=== PATIENT | female | born 1960 | race Caucasian/White ===

== ENCOUNTER 2017-11-06 05:57 | Outpatient (CLI) | payer BC ==
[~2017-11-06] VITALS: Ht 162.6 cm; Wt 76.2 kg
[~2017-11-06 05:57] MED LIST: EST; ESTRADIOL IM; LVT.025T PO; SERT50TA PO
[2017-11-06] MEDS ORDERED: LEVO75TA6 PO (11:31)
== END 2017-11-06 11:39 ==
LOC: PREOP 05:57
PROVIDERS: ATTEND Surgery
DX: Z01.818 Encounter for other preprocedural examination (principal); R19.4 Change in bowel habit

== ENCOUNTER 2017-11-11 11:47 | Day surgery (SDC) | payer BC, OTHER ==
[~2017-11-11] VITALS: Ht 162.6 cm; Wt 76.2 kg
[~2017-11-11 11:47] MED LIST changes: +LEVO75TA6 PO
--- OUTSIDE RECORDS SUMMARY | 2017-11-11 11:55 | XMS REPORT ---
Author Author Clifton Patel [facility] Address [address] [place], [place] [id number] Care Team Providers Care Fire Prevention Inspector Name Role Phone Clifton Patel PCP Unavailable Allergies and Adverse Reactions Name Reaction Notes codeine sulfate Morphine Sulfate Paxil Reglan muscle pain/twitching tramadol Zoloft leg pain/tiredness Plan of Treatment Not available. Medications Active Name Start Date Estimated Completion Date SIG Comments levothyroxine 75 mcg oral tablet take 1 tablet (75 mcg) by oral route once daily Name Start Date Expiration Date SIG Comments Symbicort 160-4.5 mcg/actuation inhalation HFA aerosol inhaler inhale 2 puffs by inhalation route 2 times per day in the morning and evening Bactroban 2 % topical cream apply a small amount to the affected area by topical route amoxicillin 875 mg oral tablet take 1 tablet (875 mg) by oral route every 12 hours Problem List Description Status Onset SCC (squamous cell carcinoma) Active 10/21/2016 Vital Signs Date Time BP-Sys(mm[Hg] BP-Taniya(mm[Hg]) HR(bpm) RR(rpm) Temp WT HT HC BMI BSA BMI Percentile O2 Sat(%) 10/19/2016 10:02:00 AM 135 mmHg 78 mmHg 74 bpm 20 rpm 97.2 F 168 lbs 65 in 27.96 kg/m2 1.87 m2 Social History Name Description Comments Tobacco Current every day smoker Alcohol Use - Occasional History of Procedures Not available. Results Summary Not available. History Of Immunizations Not available. 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
--- OUTSIDE RECORDS SUMMARY | 2017-11-11 11:55 | XMS REPORT | Continuity of Care Document ---
Author Author [facility] Address Unknown Phone Unavailable Allergies There is no data. Medications There is no data. Problems There is no data. Procedures There is no data. Results There is no data. Encounters ACCT No. Visit Date/Time Discharge Status Pt. Type Provider Facility Loc./Unit Complaint [id number] 08/14/2017 17:08:56 08/14/2017 23:59:59 [facility] Outpatient Jarvis Aviles [id number] 11/07/2016 09:16:44 11/07/2016 23:59:59 [facility] Outpatient Clifton Patel [id number] 10/19/2016 09:59:12 10/19/2016 23:59:59 [facility] Outpatient Clifton Patel
--- OUTSIDE RECORDS SUMMARY | 2017-11-11 11:55 | XMS REPORT ---
Author Author Clifton Patel [facility] Address [address] [place], [place] [id number] Care Team Providers Care Manager Company Name Role Phone Clifton Patel PCP Unavailable [...] HC BMI BSA BMI Percentile O2 Sat(%) 11/07/2016 8:45:00 AM 120 mmHg 77 mmHg 75 bpm 20 rpm 97.6 F 168 lbs 65 in 27.96 kg/m2 1.87 m2 10/19/2016 10:02:00 AM 135 mmHg 78 mmHg 74 bpm 20 rpm 97.2 F 168 lbs 65 in 27.9564 kg/m 1.8694 m Social History Name Description Comments Tobacco Current every day smoker Alcohol Use - Occasional History of Procedures Not available. Results Summary Not available. History Of Immunizations Not available. 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
--- OUTSIDE RECORDS SUMMARY | 2017-11-11 11:55 | XMS REPORT | CCD ---
Author Author JOHNATHAN HERNANDEZ Unknown Address [address] [facility] [address] [place] [id number] Care Team Providers Care Supervisor Blasting Name Role Phone REYNA ER, JORGE DO Attphys [place] ER, JORGE DO Prisurg Allergies Allergy Code Allergy Type Reaction Status No Known Drug Allergies 0 Drug allergy Active Active Medications Unknown or Not Available. Problems Unknown or Not Available. Procedures Procedure Code Procedure Type Date ABDOMEN 2 VIEW DECUB/UPRIGHT 716253635 SNOMED CT 2016 UA ROUTINE C&S IF IND 340615618 SNOMED CT 11/06/2016 C REACTIVE PROTEIN 54532018 SNOMED CT 11/06/2016 LACTIC ACID 4921817 SNOMED [address] 11/06/2016 CULTURE BLOOD 80035293 SNOMED CT 11/06/2016 COMPREHENSIVE METABOLIC PANEL 944741356 SNOMED CT 2016 CBC W/ AUTO DIFF (RFLX MAN DIFF IF IND) 2080935 SNOMED CT 11/06/2016 ^UA WITH MICRO 519863380 SNOMED CT 11/06/2016 ^CBC W/AUTO DIFF 9383436 SNOMED CT 11/06/2016 Results COMPREHENSIVE METABOLIC PANEL - Collect Date/Time: 11/06/2016 14:45 Test Name Code Test Result Test Units Test Ref Range GLUCOSE 2345-7 93 MG/DL L=70 H=100 SODIUM 2951-2 141 MEQ/L L=135 H=148 POTASSIUM 2823-3 3.8 MEQ/L L=3.5 H=5.3 CHLORIDE 2075-0 105 MEQ/L L=96 H=110 CO2 2028-9 26 MEQ/L L=22 H=29 BUN 3094-0 13 MG/DL L=8 H=22 CREATININE 2160-0 0.7 MG/DL L=0.6 H=1.6 SGOT/AST 1920-8 26 IU/L L=10 H=40 SGPT/ALT 1742-6 42 IU/L L=8 H=54 ALK PHOS 6768-6 66 IU/L L=35 H=115 TOTAL PROTEIN 2885-2 6.6 G/DL L=5.5 H=8.5 ALBUMIN 1751-7 3.9 G/DL L=3.1 H=5.4 TOTAL BILI 1975-2 0.4 MG/DL L=0.0 H=1.5 CALCIUM 67171-4 9.6 MG/DL L=8.2 H=10.6 AGE 56 yrs GFR NonAA 87 GFR AA 105 eGFR >60 N/A eGFR AA* >60 N/A CBC W/ AUTO DIFF (RFLX MAN DIFF IF IND) - Collect Date/Time: 11/06/2016 14:45 Test Name Code Test Result Test Units Test Ref Range WBC 23730-3 6.7 TH/CMM L=4.5 H=10.8 RBC 789-8 4.72 ML/CMM L=4.20 H=5.40 HGB 718-7 14.6 G/DL L=12.0 H=16.0 HCT 4544-3 44.4 % L=37.0 H=47.0 MCV 94 FL L=81 H=99 MCH 30.9 PG L=27.0 H=33.0 MCHC 32.9 G/DL L=31.0 H=36.0 RDW SD 43 FL L=36 H=50 RDW CV 12.5 % L=0.0 H=14.8 MPV 9.6 FL L=9.3 H=12.5 PLT 777-3 272 TH/CMM L=130 H=440 NRBC# 0.00 TH/CMM L=0.00 H=0.00 NRBC% 0.0 /100WBC L=0.0 H=2.0 %NEUT 50.5 % %LYMP 36.6 % %MONO 9.1 % %EOS 3.0 % %BASO 0.7 % #NEUT 3.37 TH/CMM L=2.10 H=8.20 #LYMP 2.45 TH/CMM L=0.90 H=5.20 #MONO 0.61 TH/CMM L=0.16 H=1.00 #EOS 0.20 TH/CMM L=0.00 H=0.80 #BASO 0.05 TH/CMM L=0.00 H=0.20 MANUAL DIFF NOT IND N/A UA ROUTINE C&S IF IND - Collect Date/Time: 11/06/2016 16:18 Test Name Code Test Result Test Units Test Ref Range COLOR YELLOW N/A NL: YELLOW APPEARANCE CLEAR N/A NL: CLEAR SPEC GRAV 1.015 N/A NL: 1.002 - 1.022 pH 6.0 N/A NL: 5 - 9 PROTEIN NEGATIVE N/A NL: NEGATIVE mg/dl GLUCOSE NEGATIVE N/A NL: NEGATIVE mg/dl KETONE NEGATIVE N/A NL: NEGATIVE mg/dl BILIRUBIN NEGATIVE N/A NL: NEGATIVE BLOOD SMALL N/A NL: NEGATIVE NITRITE NEGATIVE N/A NL: NEGATIVE LEUK SCREEN NEGATIVE N/A NL: NEGATIVE MICRO INDICATED? SEE BELOW N/A WBC/HPF NEGATIVE N/A NL: NEGATIVE RBC/HPF RARE N/A NL: NEGATIVE CASTS/LPF NEGATIVE N/A NL: NEGATIVE CRYSTALS NEGATIVE N/A NL: NEGATIVE MUCOUS THRDS FEW N/A NL: NEGATIVE BACTERIA NEGATIVE N/A NL: NEGATIVE EPITH CELLS FEW SQUAMOUS N/A NL: NEGATIVE TRICHOMONAS NEGATIVE N/A NL: NEGATIVE YEAST NEGATIVE N/A NL: NEGATIVE CULT SET UP? NO N/A C REACTIVE PROTEIN - Collect Date/Time: 11/06/2016 14:45 Test Name Code Test Result Test Units Test Ref Range C REACTIVE PROTEIN 1988-5 3.5 MG/DL L=0.0 H= 1.0 LACTIC ACID - Collect Date/Time: 11/06/2016 14:45 Test Name Code Test Result Test Units Test Ref Range LACTIC ACID 2524-7 0.8 mmol/L L=0.5 H=1.6 Function Status Unknown or Not Available. History of Immunizations Unknown or Not Available. Plan of Treatment Unknown or Not Available. Social History Smoking Status Code Start Date End Date Current every day smoker [id number] Vital Signs Unknown or Not Available. Function Status Unknown or Not Available. Goals Unknown or Not Available. ASSESSMENTS Unknown or Not Available. Health Concerns Section Unknown or Not Available.
--- OUTSIDE RECORDS SUMMARY | 2017-11-11 11:55 | XMS REPORT ---
Author Author Clifton Patel [facility] Address [address] [place], [place] [phone] Care Team Providers Care Remote Sensing Specialist Name Role Phone Clifton Patel PCP Unavailable [...] Group Number Start Date [facility] [id number] N/A History of Encounters Visit Date Visit Type Provider 10/19/2016 Procedures Clifton Patel DO
[2017-11-11] MEDS ORDERED: LACTATED RINGERS 1,000 ML IV ONE (12:11)
[2017-11-11 12:24] VITALS: BP 142/90
[2017-11-11] MEDS ORDERED: BENZOCAINE 20% SPRAY (HURRICANE) 60 ML CAN MT PRN (12:30)
--- NOTE | 2017-11-11 12:46 | Progress Note-Pre Operative ---
Pre-Operative Progress Note H&P Reviewed The H&P was reviewed, patient examined and no changes noted. Time Seen by Provider: 12:41 Date H&P Reviewed: Nov 11, 2017 Time H&P Reviewed: 12:44 Pre-Operative Diagnosis: Gastritis, Screening colonoscopy WESTON LOPEZ DO Nov 11, 2017 12:46
[2017-11-11] MEDS ORDERED: PROPOFOL INJECTION 50 ML IV ONE (12:48)
[2017-11-11] MEDS ORDERED: MIDAZOLAM 2 MG/2 ML (VERSED) VIAL ONE (12:49)
[2017-11-11] MEDS ORDERED: HURRICAINE EXT TUBE (BENZOCAINE) ONE (13:18)
--- NOTE | 2017-11-11 13:51 | Progress Note-Post Operative ---
Post-Operative Progess Note Surgeon (s)/Manager Of International (s) Surgeon WESTON LOPEZ DO Manager Of International: none Pre-Operative Diagnosis Gastritis, Screening colonoscopy Post-Operative Diagnosis Gastritis, Duodenitis Colon polyp, diverticula, int hemorrhoids Procedure & Operative Findings Date of Procedure 11/11/17 Procedure Performed/Findings EGD with bx colon with cold bx Anesthesia Type IV sedation by anesthesia Estimated Blood Loss Estimated blood loss (mL): scant Specimens/Packing Specimens Removed Duodenal bx Gastric bx Sigmoid colon polyp Rectal polyp WESTON LOPEZ DO Nov 11, 2017 13:51
--- NOTE | 2017-11-11 13:52 | Endoscopy Discharge Instruct ---
Endo Procedure/Findings Findings 1.: Polyp 2.: Diverticulosis, Internal Hemorrhoids 3.: Gastritis 4.: Other Findings (duodenitis) Discharge Instructions - Activity: You might feel a little sleepy until tomorrow. This is due to the medicine you received to relax you. Until tomorrow, you should: NOT drive a car, operate machinery or power tools. NOT drink any alcoholic beverages. NOT make any important decisions or sign importortant papers. Do not return to work until tomorrow, unless otherwise instructed. Resume previous activities tomorrow. Diet: Start by taking liquids. If you tolerate liquids, advance to solid food. Make appointment for one week. Notify Physician - If you experience excessive bleeding, unusual abdominal pain, fever, or chest pain, contact your doctor immediately. Follow-Up: - I have received and understand the above instructions and will call my doctor if I have any further questions. Patient Signature Date Nurse Signature Other (Relationship) WESTON LOPEZ DO Nov 11, 2017 13:52
[2017-11-11 14:00] VITALS: BP 151/59
[2017-11-11 14:30] VITALS: BP 121/59
--- NOTE | 2017-11-11 14:43 | Anesthesia-General Post-Op ---
General Patient Condition Mental Status/LOC: Same as Preop Cardiovascular: Satisfactory Nausea/Vomiting: Absent Respiratory: Satisfactory Pain: Controlled Complications: Absent Post Op Complications Complications None Follow Up Care/Instructions Patient Instructions None needed. Anesthesia/Patient Condition Patient Condition Patient is doing well, no complaints, stable vital signs, no apparent adverse anesthesia problems. No complications reported per nursing. MANUELA COPPOLA CRNA Nov 11, 2017 14:43
[2017-11-11 14:51] VITALS: BP 121/59
--- NOTE | 2017-11-11 22:12 | OPERATIVE REPORT ---
DATE OF SERVICE: PREOPERATIVE DIAGNOSES: 1. Gastritis. 2. Screening colonoscopy. POSTOPERATIVE DIAGNOSES: 1. Gastritis. 2. Duodenitis. 3. Colon polyp. 4. Diverticula. 5. Internal hemorrhoids. PROCEDURES: 1. EGD with biopsy. 2. Colonoscopy with biopsy. SURGEON: Dr. Boateng. RACING DRIVER: None. ANESTHESIA: IV sedation by anesthesia. SPECIMEN: One biopsy from duodenum, one biopsy from antrum as well as one biopsy from the GE junction. The patient then also had one colon polyp removed from the sigmoid and one from the rectum. BLOOD LOSS: Scant. FLUIDS: Per anesthesia. POSTOPERATIVE CONDITION: Stable. INDICATION FOR PROCEDURE: The patient is a 57-year-old female, who has been having some reflux symptoms, has not had an EGD. She has need for screening colonoscopy. She had a history of polyps many years ago, questionable change in bowel habits. FINDINGS: The patient had pretty red stomach as well as antrum and what looked like possibly a polyp or just inflammation at the GE junction. She also had inflamed duodenum. In the colon, saw large amount diverticula in the sigmoid colon, one small polyp in the sigmoid colon, one small polyp in the rectum and then some internal hemorrhoids, no other obvious pathology. PROCEDURE NOTE: After informed consent was obtained, the patient was brought to the endoscopy suite and placed in the bed in the left lateral decubitus position. She was administered IV sedation by anesthesia who then monitored her vitals the entire time, heart rate, blood pressure and pulse ox. Then, the scope was inserted down the mouth into the esophagus and down into the stomach. Stomach appeared very erythematous looked like gastritis. No ulcers seen. Pushed into the duodenum and duodenum actually also looked erythematous, but down to the second portion of the duodenum will appear a little bit better, took a biopsy in the duodenum and then pulled back into the antrum, took another biopsy here, retroflexed. I did another biopsy in the body of the stomach and then actually when pulling back into the esophagus looked like there is possibly a polyp or possibly just inflamed GE junction, did a biopsy here. Esophagus otherwise looked okay. There was no creeping up the Z line. I removed the scope, I then switched the gloves and switched scopes and went to below to start the colonoscopy. Inserted the scope, pushed all the way to about 150 cm, on the way in noted a lot of diverticular, took a picture of this. Once in the cecum able to get a picture of the appendiceal orifice to get into the terminal ileum took a picture of this and then slowly withdrew the scope insufflating to look circumferentially at the veliz looking at the cecum, up the ascending colon to the hepatic flexure and then down the transverse colon, the splenic flexure, into the descending colon and down in the sigmoid. In the sigmoid saw again a large amount of diverticula. I saw small polyp. This cold biopsy, we were able to get the polyp in one bite, pulled down into the rectum, saw another small polyp, took a picture of this and then also remove this polyp one by retroflexed in the rectal vault, some internal hemorrhoids, took a picture of this and then removed the scope. The patient tolerated the procedure and she was recovered in the endoscopy suite. Job ID: [id number] DocumentID: [id number] Dictated Date: 11/11/2017 15:04:28 Stave Block Roller Date: 11/11/2017 22:12:01 Dictated By: WESTON BOATENG DO
== END 2017-11-11 14:54 | disposition home or self-care (01) ==
LOC: ENDO 11:47
PROVIDERS: ATTEND Surgery
DX: Z12.11 Encounter for screening for malignant neoplasm of colon (principal); K29.70 Gastritis, unspecified, without bleeding; K63.5 Polyp of colon; K62.1 Rectal polyp; K29.80 Duodenitis without bleeding; K57.30 Diverticulosis of large intestine without perforation or abscess without bleeding; K64.8 Other hemorrhoids; Z79.899 Other long term (current) drug therapy

== ENCOUNTER 2023-06-27 09:21 | Outpatient (RCR) | payer OTHER ==
[2023-07-03] MEDS ORDERED: ALBU2.5V4 INH (09:44)
[2023-07-03] MEDS ORDERED: ALBU18HF2 INH (09:44)
== END 2023-07-16 09:03 | disposition home or self-care (01) ==
PROVIDERS: ATTEND Nurse Practitioner Family
DX: R09.A2 Foreign body sensation, throat (principal)

== ENCOUNTER → 2023-07-02 | Outpatient (CLI) | payer OTHER ==
[~2023-07-02] MED LIST changes: +ALBU18HF2 INH; +ALBU2.5V4 INH; +RT-ALBUTEROL SULF 2.5 MG/3 ML PRE-MIX VIAL INH ONE
== END ==
LOC: RT 08:59
PROVIDERS: ATTEND Nurse Practitioner Family
DX: J44.9 Chronic obstructive pulmonary disease, unspecified (principal); F17.200 Nicotine dependence, unspecified, uncomplicated
CPT/HCPCS: 94060; 94726; 94729

== ENCOUNTER 2023-07-03 05:55 | Outpatient (CLI) | payer OTHER ==
[~2023-07-03] VITALS: Ht 160 cm; Wt 74.3 kg
[~2023-07-03 05:55] MED LIST changes: -ALBU18HF2 INH; -ALBU2.5V4 INH; -RT-ALBUTEROL SULF 2.5 MG/3 ML PRE-MIX VIAL INH ONE
[2023-07-03] MEDS ORDERED: ALBU2.5V4 INH (09:44)
[2023-07-03] MEDS ORDERED: ALBU18HF2 INH (09:44)
== END 2023-07-03 09:47 | disposition home or self-care (01) ==
LOC: PREOP 05:55
PROVIDERS: ATTEND Surgery
DX: Z01.818 Encounter for other preprocedural examination (principal)

== ENCOUNTER 2023-07-08 09:19 | Day surgery (SDC) | payer OTHER ==
[2023-07-08] VITALS (7 sets, daily range): BP systolic 109–235; BP diastolic 48–105
[~2023-07-08] VITALS: Ht 160 cm; Wt 74.3 kg
[~2023-07-08 09:19] MED LIST changes: +ALBU18HF2 INH; +ALBU2.5V4 INH
[2023-07-08] MEDS ORDERED: LACTATED RINGERS 1,000 ML 1,000 ML IV STA (09:24)
[2023-07-08] MEDS ORDERED: HURRICAINE EXT TUBE (BENZOCAINE) XX PRN (09:45)
--- NOTE | 2023-07-08 10:03 | Progress Note-Pre Operative ---
Pre-Operative Progress Note Date of Available H&P: Jun 25, 2023 Date H&P Reviewed: Jul 08, 2023 Time H&P Reviewed: 09:58 History & Physical: H&P Reviewed, Patient Examed, No changes noted Pre-Operative Diagnosis: GERD, Hx of polyps WESTON LOPEZ DO Jul 08, 2023 10:02
[2023-07-08] MEDS ORDERED: proPOfol INJECTION 200 MG/20 ML VIAL IV ONE (11:44)
--- NOTE | 2023-07-08 12:30 | Progress Note-Post Operative ---
Post-Operative Progess Note Surgeon (s)/Baler Operator (s) Surgeon WESTON LOPEZ DO Baler Operator: Ortega Richard, MSIII Pre-Operative Diagnosis GERD, Hx of polyps Post-Operative Diagnosis Duodenitis Gastritis with bleed Hiatal hernia Polyps diverticula int hemorrhoids Procedure & Operative Findings Date of Procedure 07/08/23 Procedure Performed/Findings EGD with biopsy Colonoscopy with snare polypectomy PROCEDURE NOTE: After informed consent was obtained, the patient was brought to the endoscopy suite, placed in bed in left lateral decubitus position. She was administered IV sedation by the STUDENT DEAN who then monitored vitals the entire time, heart rate, blood pressure and pulse ox and the scope was inserted down the mouth through the esophagus into the stomach. On the way down, noted some mild esophagitis, took a picture, pushed into the stomach, noted some gastritis and possible flecks of blood. Pushed past the antrum into the duodenum; there appeared to be some duodenitis and I did a biopsy. Pulled back and did a biopsy of the antrum, then the body and then retroflexed the scope. I saw a small Grad e II AFS hiatal hernia, took a picture of thisand then pulled the scope into the GE junction, took another picture of the hiatal hernia and then did a biopsy of the GE junction. Pushed the scope back into the stomach, suctioned all the air out of the stomach. At this point pulled the scope up the esophagus and out the mouth. Switched camera, switched gloves, went down below and started the colonoscopy. Pushed all the way to about 150 cm and pushed into the cecum, took a picture of the appendiceal orifice and noted the ileocecal valve. Then slowly withdrew the scope insufflating to look circumferentially at the veliz starting in the cecum and up the ascending colon. Found a polyp here and elected to remove it with the snare. Then up to the hepatic flexure, down the transverse colon, splenic flexure, into the descending colon down into the sigmoid and then into the rectum. I found another polyp here and removed it with the snare. Finally, in the rectal vault I retroflexed the scope and took a picture of the internal hemorrhoids. The patient tolerated the procedure and she recovered in the endoscopy suite. Recommended for repeat colonoscopy in 5 years Anesthesia Type IV sedation by STUDENT DEAN Estimated Blood Loss Estimated blood loss (mL): scant Specimens/Packing Specimens Removed duodenal bx antral bx body of stomach bx GE jxn bx asc colon polyp rectal polyp WESTON LOPEZ DO Jul 08, 2023 12:29
--- NOTE | 2023-07-08 12:31 | Endoscopy Discharge Instruct ---
Endo Procedure/Findings Findings 1.: Gastritis, Other Findings (Duodenitis) 2.: Hiatal Hernia 3.: Polyp 4.: Diverticulosis, Internal Hemorrhoids Discharge Instructions - Activity: You might feel a little sleepy until tomorrow. This is due to the medicine you received to relax you. Until tomorrow, you should: NOT drive a car, operate machinery or power tools. NOT drink any alcoholic beverages. NOT make any important decisions or sign importortant papers. Do not return to work until tomorrow, unless otherwise instructed. Resume previous activities tomorrow. Diet: Start by taking liquids. If you tolerate liquids, advance to solid food. 1.: EGD in 3 years 2.: Colonscopy in 5 years Notify Physician - If you experience excessive bleeding, unusual abdominal pain, fever, or chest pain, contact your doctor immediately. Follow-Up: Other Follow up in my office in one week WESTON LOPEZ DO Jul 08, 2023 12:31
--- NOTE | 2023-07-08 12:43 | Anesthesia-General Post-Op ---
MAC Patient Condition Mental Status/LOC: Same as Preop Cardiovascular: Satisfactory Nausea/Vomiting: Absent Respiratory: Satisfactory Pain: Controlled Complications: Absent Post Op Complications Complications None Follow Up Care/Instructions Patient Instructions None needed. Anesthesiology Discharge Order Discharge Order Patient is doing well, no complaints, stable vital signs, no apparent adverse anesthesia problems. No complications reported per nursing. TODD VALERIO CRNA Jul 08, 2023 12:43
== END 2023-07-08 12:55 | disposition home or self-care (01) ==
LOC: ENDO 09:19
PROVIDERS: ATTEND Surgery
DX: D12.2 Benign neoplasm of ascending colon (principal); K62.1 Rectal polyp; K29.51 Unspecified chronic gastritis with bleeding; K29.80 Duodenitis without bleeding; K44.9 Diaphragmatic hernia without obstruction or gangrene; K21.00 Gastro-esophageal reflux disease with esophagitis, without bleeding; K57.30 Diverticulosis of large intestine without perforation or abscess without bleeding; K64.8 Other hemorrhoids; F17.210 Nicotine dependence, cigarettes, uncomplicated; Z85.038 Personal history of other malignant neoplasm of large intestine

== ENCOUNTER → 2023-07-22 | Outpatient (CLI) | payer OTHER ==
[~2023-07-22] MED LIST changes: +BARIUM for suspension 96% w/w (Vanilla Silq Medium Density) PO ONE; +BARIUM for suspension 98% w/w (Vanilla Silq High Density) PO ONE
--- NOTE | 2023-07-22 15:05 | Diagnostic Imaging Report ---
INDICATION: Dysphagia and food getting stuck in the throat. TECHNIQUE: Patient ingested effervescent crystals as well as thin and thick barium, and imaging of the esophagus was performed in multiple obliquities. Total of 58 seconds of fluoroscopic time was utilized. Reference air kerma is 17.7 mGy. 40 images were obtained. FINDINGS: Preliminary radiograph of the chest demonstrates the lungs to be clear. There are postop changes of ACDF in the lower cervical spine. Post-ingestion images demonstrate a smooth contour to the esophagus. No mass or stricture is identified. No hiatal hernia or gastroesophageal reflux was demonstrated. IMPRESSION: Unremarkable esophagram. Dictated by: Dictated on workstation # [id number]
== END ==
LOC: RAD 10:39
PROVIDERS: ATTEND Nurse Practitioner Family
DX: R09.89 Other specified symptoms and signs involving the circulatory and respiratory systems (principal); R13.10 Dysphagia, unspecified
CPT/HCPCS: 74220